=== PATIENT | female | born 1975 | race Caucasian/White ===

== ENCOUNTER 2018-01-12 09:47 | Emergency (ER) | payer BC ==
[2018-01-12 10:03] VITALS: BP 113/74; PULSE 98; TEMP 98.6; BMI 20.7
--- NOTE | 2018-01-12 10:05 | PDOC ---
Attending Attestation - Resident Resident Name: Roddy Puentes - ED Attending Attestation I have performed the following: I have examined & evaluated the patient, The case was reviewed & discussed with the resident, I agree w/resident's findings & plan, Exceptions are as noted - HPI HPI: 01/12/18 10:35 42-year-old female with no significant past medical history presents emergency Department with palpitations, shortness of breath, and chest tightness. Symptoms began last night with the patient was getting ready for bed after she carried a laundry basket up the stairs. She reports feeling like her heart is going to come out of her chest and her states he was able to see her heart rapidly beating. She states the palpitations, SOB, and chest tightness lasted up until she got into the car to come to the emergency department this morning. She was able to sleep a few hours through the sxs but states when they were persistent this morning, she called her PMD who was out of town. She states she currently does not have any symptoms. She reports feeling chest tightness over the area where she felt the palpitations. Denies any history of similar symptoms. Patient does take oral contraceptive pills. Denies any history of recent travel or immobility. Denies fevers, chills, cough. Denies any personal or family history of DVT, PE or clotting disorders. Denies nausea, vomiting, weakness, abdominal pain, lower extremity edema or calf pain. - Physicial Exam PE: 01/12/18 10:40 GENERAL: Awake, alert, and fully oriented, in no acute distress HEAD: No signs of trauma EYES: PERRLA, EOMI, sclera anicteric, conjunctiva clear ENT: Auricles normal inspection, hearing grossly normal, nares patent, oropharynx clear without exudates. Moist mucosa NECK: Normal ROM, supple, no lymphadenopathy, JVD, or masses LUNGS: Breath sounds equal, clear to auscultation bilaterally. No wheezes, and no crackles HEART: Regular rate and rhythm, normal S1 and S2, no murmurs, rubs or gallops ABDOMEN: Soft, nontender, normoactive bowel sounds. No guarding, no rebound. No masses EXTREMITIES: Normal range of motion, no edema. No clubbing or cyanosis. No cords, erythema, or tenderness NEUROLOGICAL: Normal speech, cranial nerves intact, negative pronator drift, 5/ 5 strength in all 4 extremities, normal sensation to light touch in all 4 extremities, normal cerebellar exam, normal gait, normal reflexes and tone SKIN: Warm, Dry, normal turgor, no rashes or lesions noted. - Medical Decision Making 01/12/18 10:40 42-year-old female presents emergency Department with sudden onset palpitations , shortness of breath and chest tightness. Vitals, exam, and EKG within normal limits. Differential includes but is not limited to pulmonary embolism versus arrhythmia. Plan: -locate technician -labs including d-dimer -upt -CXR -consider CTA -reassess 01/12/18 12:22 Hgb 9.9. Pt reports hx of iron deficiency anemia but admits she is not compliant with her iron. She states her hgb level was last 9.4. Denies dark or bloody stools. Advised pt to begin taking her iron pills again. Anemia is unlikely cause of these acute symptoms as she is above her last hgb of 9.4 from months ago and sxs are new. Dimer elevated to 763, CTA ordered. Pt continues to be asymptomatic. No arrhythmias captured on telemetry. 01/12/18 13:25 CTA negative. Pt remains asymptomatic. Will DC to f/u with PMD for possible holter monitor. Pt feels well. I discussed the physical exam findings, ancillary test results and final diagnoses with the patient. I answered all of the patient's questions. The patient was satisfied with the care received and felt comfortable with the discharge plan and treatment plan. The patient will call their primary care physician within 24 hours to arrange follow-up and will return to the Emergency Department with any new, persistent or worsening symptoms. Discharge Disposition - Diagnosis Palpitations - Discharge Dispostion Disposition: HOME Condition at time of disposition: Good Decision to Admit order: No - Referrals Referrals: Cely Tanner MD [Primary Care Provider] - - Patient Instructions Printed Discharge Instructions: DI for Palpitations Additional Instructions: You were seen in the ER for palpitations. You had a CT angiogram which did not show any signs of a blood clot in your lungs. You should follow up with your primary care doctor and a gold burnisher. Please return to the ER if you have any signs or symptoms of chest pain, shortness of breath, uncontrollable fever, chills, nausea, vomiting, numbness, tingling, or weakness in any part of your body, changes in vision, or slurred speech. Please return to the ER if symptoms persist, worsen, or new symptoms arise. - Post Discharge Activity Heart Score/ECG Review #1 01/12/18 10:43 Twelve-lead EKG was performed and reviewed by me. Normal sinus rhythm, rate 89. Normal axis and intervals. No ST elevations. Q waves in lead V2.
--- NOTE | 2018-01-12 10:22 | PDOC ---
History of Present Illness - General Chief Complaint: Palpitations Stated Complaint: PALPITATIONS Time Seen by Provider: 01/12/18 09:58 History Source: Patient Exam Limitations: No Limitations - History of Present Illness Initial Comments: 01/12/18 10:11 The patient is a 42F with a PMH of anemia who presents to the ER complaining of palpitations. The patient states that around 2330 last night, she began to feel like her heart was racing. She admits to associated chest tightness, shortness of breath, and lightheadedness. She denies any chest pain, fever, chills, nausea , vomiting. She admits to a family history of her father having SCD at the age of 40. She denies any drug use, smoking, hemoptysis, hx of cancer, hx of blood clots, recent travel, and recent surgery. Past History - Past Medical History Allergies/Adverse Reactions: Allergies Allergy/AdvReac Type Severity Reaction Status Date / Time fish derived Allergy Unknown Verified 01/12/18 10:03 Penicillins Allergy Unknown Verified 01/12/18 09:55 tree nut Allergy Unknown Verified 01/12/18 10:03 Home Medications: Ambulatory Orders Norgestimate-Ethinyl Estradiol [Mononessa 28 Tablet] 1 each PO DAILY 01/12/18 Anemia: Yes (IRON DEFICIENCY) COPD: No - Suicide/Smoking/Psychosocial Hx Smoking History: Never smoked Hx Alcohol Use: Yes (ONCE PER WEEK) Drug/Substance Use Hx: No Substance Use Type: None Review of Systems - Review of Systems Able to Perform ROS?: Yes Comments:: 01/12/18 10:22 GENERAL/CONSTITUTIONAL: No fever or chills. No weakness. HEAD, EYES, EARS, NOSE AND THROAT: No change in vision. No ear pain or discharge. No sore throat. CARDIOVASCULAR: Positive for chest tightness and lightheadedness. No chest pain or palpitations. RESPIRATORY: Positive for shortness of breath. No cough, wheezing, or hemoptysis. GASTROINTESTINAL: No nausea, vomiting, diarrhea, constipation, or abdominal pain. GENITOURINARY: No dysuria, frequency, hematuria, or change in urination. MUSCULOSKELETAL: No joint or muscle swelling or pain. No neck or back pain. SKIN: No rash or lesions. NEUROLOGIC: No headache, numbness, tingling, weakness, loss of consciousness, or change in strength/sensation. ENDOCRINE: No increased thirst. No abnormal weight change. HEMATOLOGIC/LYMPHATIC: No anemia, easy bleeding, or history of blood clots. ALLERGIC/IMMUNOLOGIC: No hives or skin allergy. Is the patient limited Kazakh proficient: No *Physical Exam - Vital Signs Last Vital Signs Temp Pulse Resp BP Pulse Ox 98.6 F 98 H 15 113/74 100 01/12/18 09:54 01/12/18 09:54 01/12/18 09:54 01/12/18 09:54 01/12/18 09:54 - Physical Exam Comments: 01/12/18 10:23 GENERAL: Well developed, well nourished. Awake and alert. No acute distress. HEENT: Normocephalic, atraumatic. Hearing grossly normal. Moist mucous membranes. PERRLA, EOMI. No conjunctival pallor. Sclera are non-icteric. NECK: Supple. Full ROM. No JVD. CARDIOVASCULAR: Tachycardic with regular rhythm. No murmurs, rubs, or gallops. PULMONARY: No evidence of respiratory distress. Lungs clear to auscultation bilaterally. No wheezing, rales or rhonchi. ABDOMINAL: Soft. Non-tender. Non-distended. No rebound or guarding. GENITOURINARY: No CVA tenderness bilaterally. MUSCULOSKELETAL: Normal range of motion at all joints. No bony deformities or tenderness. EXTREMITIES: No cyanosis. No clubbing. No edema. No calf tenderness or swelling. SKIN: Warm and dry. Normal capillary refill. No rashes. No jaundice. NEUROLOGICAL: Alert, awake, appropriate. Cranial nerves 2-12 intact. Normal speech. Gait is normal without ataxia. PSYCHIATRIC: Cooperative. Good eye contact. Appropriate mood and affect. Heart Score/ECG Review #1 ECG reviewed & interpreted by me at: 10:24 General ECG Interpretation: Sinus Rhythm, Normal Rate, Normal Intervals, No acute ischemic changes Compared to previous ECG there are: Previous ECG unavail 01/12/18 10:25 NSR Vent rate 89 DE 126 QRS 74 QTc 430 No XANDER or STD Possible Q waves in V1/V2 w/ poor R wave progression in V1-V3 No signs of acute ischemia ED Treatment Course - LABORATORY CBC & Chemistry Diagram: 01/12/18 10:20 01/12/18 10:20 - RADIOLOGY Radiology Studies Ordered: Category Date Time Status CHEST PA & LAT [RAD] Stat Radiology 01/12/18 10:04 Ordered Medical Decision Making - Medical Decision Making 01/12/18 10:27 The patient is a 42F with a PMH of anemia who presents with acute onset palpitations, chest tightness, and lightheadedness. She admits to OCP use but is low risk for PE by Well's criteria. I am concerned for PE, ACS, new onset a- fib or other arrhythmia. Pending labs and imaging. EKG unremarkable. 01/12/18 11:22 Labs significant for Hgb that's 9.9. Pt's previous Hgb per [facility] labs is 9.4, therefore stable. CMP unremarkable. Pending d-dimer and TSH. UA negative. 01/12/18 12:21 D-dimer elevated to 763. Will order CTA. 01/12/18 13:21 CTA negative. Will d/c home with PCP f/u. *DC/Admit/Observation/Transfer Diagnosis at time of Disposition: Palpitations - Discharge Dispostion Disposition: HOME Condition at time of disposition: Good Decision to Admit order: No - Referrals Referrals: Cely Tanner MD [Primary Care Provider] - - Patient Instructions Printed Discharge Instructions: DI for Palpitations Additional Instructions: You were seen in the ER for palpitations. You had a CT angiogram which did not show any signs of a blood clot in your lungs. You should follow up with your primary care doctor and a media developer. Please return to the ER if you have any signs or symptoms of chest pain, shortness of breath, uncontrollable fever, chills, nausea, vomiting, numbness, tingling, or weakness in any part of your body, changes in vision, or slurred speech. Please return to the ER if symptoms persist, worsen, or new symptoms arise. - Post Discharge Activity
[2018-01-12 10:47] LABS: PH,URINE 5.5 (4.5-8); URINE APPEARANCE Clear; URINE BILIRUBIN Negative (NEGATIVE); URINE COLOR AMBER; URINE GLUCOSE (UA) Negative (NEGATIVE); URINE KETONE Negative (NEGATIVE); URINE LEUK ESTERASE Negative (NEGATIVE); URINE NITRITE Negative (NEGATIVE); URINE PROTEIN Negative (NEGATIVE); URINE UROBILINOGEN 0.2 (0.2-1.0)
[2018-01-12 11:04] LABS: ALBUMIN 3.5 g/dl (3.5-5.0); ALK PHOS 68 U/L (32-92); ANION GAP 4 (8-16); BASO % 0.5 % (0-2.0); BILIRUBIN,TOTAL 0.1 mg/dl (0.2-1.0); BLOOD UREA NITROGEN 10 mg/dl (7-18); CALCIUM 8.7 mg/dl (8.4-10.2); CHLORIDE 109 mmol/L (98-107); CO2 23 mmol/L (22-28); CREATININE 0.6 mg/dl (0.6-1.3); EOS % 0.9 % (0-4.5); GLUCOSE,RANDOM 92 mg/dl (74-106); HEMATOCRIT 32.5 % (32.4-45.2); HEMOGLOBIN 9.9 GM/dl (10.7-15.3); LYMPH % 22.3 % (8-40); MCH 20.9 pg (25.7-33.7); MCHC 30.4 g/dl (32.0-36.0); MEAN CELL VOLUME 68.8 fl (80-96); MEAN PLT VOLUME 8.9 fl (7.5-11.1); NEUT % 68.3 % (42.8-82.8); PLATELET COUNT 297 K/MM3 (134-434); POTASSIUM 4.2 mmol/L (3.5-5.1); RBC 4.73 M/mm3 (3.60-5.2); RDW 16.9 % (11.6-15.6); SGOT/AST 18 U/L (10-42); SGPT/ALT 16 U/L (10-40); SODIUM 136 mmol/L (136-145); TOT PROT 7.1 g/dl (6.4-8.3); WHITE BLOOD COUNT 6.8 K/mm3 (4.0-10.8)
[2018-01-12 11:05] LABS: ADD RBC MORPHOLOGY YES
[2018-01-12 11:23] LABS: URINE RBC 0-1 /hpf (0-3)
[2018-01-12 12:44] LABS: ANISOCYTOSIS FEW
--- NOTE | 2018-01-14 22:40 | EKG ---
Test Reason : Blood Pressure : / mmHG Vent. Rate : 089 BPM Atrial Rate : 089 BPM P-R Int : 126 ms QRS Dur : 074 ms QT Int : 354 ms P-R-T Axes : 009 -11 038 degrees QTc Int : 430 ms NORMAL SINUS RHYTHM SEPTAL INFARCT , AGE UNDETERMINED ABNORMAL ECG NO PREVIOUS ECGS AVAILABLE Confirmed by ISMA SANTANA MD ([id number]) on 01/14/2018 10:40:27 PM Referred By: CATHLEEN Confirmed By:ISMA SANTANA MD
== END 2018-01-12 13:30 | disposition home or self-care (01) ==
LOC: FER 09:47
DX: R00.2 Palpitations (principal); D64.9 Anemia, unspecified
CPT/HCPCS: 36415; 71046-TC-FY; 71275-TC; 80053; 81003; 81015; 82550; 84443; 84484; 84703; 85025; 85379; 93005; 99285-25